=== PATIENT | male | born 1960 | race American Indian/Alaskan Native ===

== ENCOUNTER 2018-05-08 08:11 | Emergency (ER) | payer MEDICAID ==
[2018-05-08 08:20] VITALS: BMI 28.6
[2018-05-08 08:44] VITALS: RESP 18
--- NOTE | 2018-05-08 10:16 | ED PDOC ---
Arrival/HPI - General Chief Complaint: Lower Extremity Problem/Injury Time Seen by Provider: 05/08/18 08:21 Historian: Patient - History of Present Illness Narrative History of Present Illness (Text): 05/08/18 10:12 A 57 year old female, whose past medical history includes hypertension, arthritis, and heroin drug use, presents to the emergency department with a complaint of left foot pain and swelling. Patient notes that he has been experiencing these symptoms for the past 3 weeks. He reports twisting his ankle on a curb a few weeks ago. He states he was seen at [facility] for similar symptoms for which a foot xray was done. The patient also reports lightheadedness today. He denies fevers, chills, headache, chest pain, shortness of breath, dyspnea on exertion, cough, abdominal pain, nausea, vomiting, diarrhea, back pain, neck pain, urinary/bowel changes, or any other complaint. Time/Duration: Other (3 weeks) Symptom Onset: Sudden Symptom Course: Unchanged Activities at Onset: Rest, Light Context: Home Past Medical History - Provider Review Nursing Documentation Reviewed: Yes - Infectious Disease Hx of Infectious Diseases: None - Tetanus Immunization Tetanus Immunization: Up to Date - Cardiac Hx Hypertension: Yes - Psychiatric Hx Anxiety: Yes Hx Substance Use: Yes (last time 11/17/15) - Past Surgical History Past Surgical History: No Previous - Anesthesia Hx Anesthesia: No - Suicidal Assessment Feels Threatened In Home Enviroment: No Family/Social History - Physician Review Nursing Documentation Reviewed: Yes Family/Social History: No Known Family HX Smoking Status: Never Smoked Hx Alcohol Use: No Hx Substance Use: Yes (last time 11/17/15) Substance used: herion Hx Substance Use Treatment: No Allergies/Home Meds Allergies/Adverse Reactions: Allergies No Known Allergies Allergy (Unverified 11/17/15 12:54) Home Medications: Home Meds Medication Instructions Recorded Confirmed No Known Home Med 05/08/18 05/08/18 Review of Systems - Physician Review All systems were reviewed & negative as marked: Yes - Review of Systems Constitutional: absent: Fevers Respiratory: absent: SOB, Cough Cardiovascular: absent: Chest Pain, GANNON Gastrointestinal: absent: Abdominal Pain, Stool Changes, Diarrhea, Nausea, Vomiting Genitourinary Male: absent: Urinary Output Changes Musculoskeletal: Other (left foot pain.). absent: Back Pain, Neck Pain Neurological: Dizziness (Lightheadedness.). absent: Headache Physical Exam - Physical Exam Narrative Physical Exam (Text): 05/08/18 10:17 Gen: VS reviewed, alert, well developed, well nourished, nontoxic, mild distress. Somnolent. ENT: normal pharynx. Eye: EOMI, PERRL. Neck: no JVD, supple, no adenopathy. CV: regular rate, regular rhythm, no rubs, no murmur, no gallops, S1, S2, pulses equal and strong. Pulm: no distress, clear to auscultation, no wheeze, no rhonchi, breath sounds equal, no rales. Abd: soft, nontender, no guarding, no rebound, no rigidity, normal bowel sounds. Ext: Trace bilateral lower extermity edema. Left foot: No tenderness to palpation of left foot. No tenderness to lateral/ medial aspect of the left foot. Skin: good color, no rash, no cyanosis. Psych: responds appropriately to questions, normal affect. Neuro: oriented x 3, CN2-12 intact grossly, motor intact, sensation intact. Vital Signs Reviewed: Yes Vital Signs Temp Pulse Resp BP Pulse Ox 05/08/18 08:11 98.1 F 60 18 117/77 96 Temperature: Afebrile Blood Pressure: Normal Pulse: Regular Respiratory Rate: Normal Appearance: Positive for: Well-Appearing, Non-Toxic, Comfortable Pain Distress: None Mental Status: Positive for: Alert and Oriented X 3 Medical Decision Making ED Course and Treatment: 05/08/18 10:18 Impression: A 57 year old male presents to the emergency department with a complaint of left foot pain. Plan: -- Left Foot X- ray -- Chest X-ray -- Labs -- Reassess and disposition Prior Visits: Notes and results from previous visits were reviewed. Progress Notes: 05/08/18 10:11: Discussed case with ER physician at [facility] emergency department. 05/08/18 12:26 patient is now awake and alert and no longer appears somnolent. patient informed of diagnostic tests and instructed to follow up with a salesforce specialist. - Lab Interpretations I have reviewed the lab results: Yes - RAD Interpretation Narrative RAD Interpretations (Text): Chest X-ray Date Signed: 05/08/18 1119 Signed By: Tory Bell MD IMPRESSION: No focal consolidation. Radiology Orders: 05/08/18 10:03 CHEST PORTABLE [RAD] Stat - Scribe Statement The provider has reviewed the documentation as recorded by the Scribe Mahnaz Sandoval Provider Scribe Attestation: All medical record entries made by the Scribe were at my direction and personally dictated by me. I have reviewed the chart and agree that the record accurately reflects my personal performance of the history, physical exam, medical decision making, and the department course for this patient. I have also personally directed, reviewed, and agree with the discharge instructions and disposition. Disposition/Present on Arrival - Present on Arrival Any Indicators Present on Arrival: No History of DVT/PE: No History of Uncontrolled Diabetes: No Urinary Catheter: No History of Decub. Ulcer: No History Surgical Site Infection Following: None - Disposition Have Diagnosis and Disposition been Completed?: Yes Diagnosis: Foot pain, Drug abuse Disposition: HOME/ ROUTINE Disposition Time: 12:27 Patient Plan: Discharge Condition: STABLE Discharge Instructions (ExitCare): Drug Abuse and Drug Addiction (DC), Foot Sprain (DC) Additional Instructions: follow up with the salesforce specialist. Referrals: Mervin Oakes DPM [Staff Provider] - Follow up with primary Forms: [employer] ([place])
[2018-05-08 10:24] VITALS: O2SAT 99
[2018-05-08 10:28] LABS: BASO # 0.02 K/mm3 (0.0-2.0); BASO % 0.8 % (0.0-3.0); EOS # 0.1 (0.0-0.7); EOS % 4.6 % (1.5-5.0); GRAN # 1.19 (1.4-6.5); GRAN % 49.4 % (50.0-68.0); HEMOGLOBIN 11.9 g/dL (14.0-18.0); LYMPH # 0.9 (1.2-3.4); LYMPH % 38.6 % (22.0-35.0); MEAN CELL VOLUME 85.4 fl (80.0-105.0); MEAN CORPUSCULAR HEMOGLOBIN 27.2 pg (25.0-35.0); MEAN CORPUSCULAR HGB CONC 31.9 g/dl (31.0-37.0); MEAN PLATELET VOLUME 9.4 fl (7.0-11.0); MONO # 0.2 (0.1-0.6); MONO % 6.6 % (1.0-6.0); RBC 4.37 10^6/uL (3.5-6.1); RED CELL DISTRIBUTION WIDTH 12.1 % (11.5-14.5); WHITE BLOOD COUNT 2.4 10^3/uL (4.5-11.0)
[2018-05-08 10:37] LABS: ALB/GLOB RATIO 1.3 (1.1-1.8); ALBUMIN 4.3 g/dL (3.0-4.8); ALT/SGPT 46 U/L (7-56); AST/SGOT 50 U/L (17-59); BLOOD UREA NITROGEN 23 mg/dL (7-21); CALCIUM 9.5 mg/dL (8.4-10.5); GFR NON-AFRICAN AMERICAN > 60
[2018-05-08 10:46] LABS: B-TYPE NATRIURETIC PEPTIDE 28.5 pg/mL (0-450)
[2018-05-08 11:19] LABS: BARBITURATES, UR NEGATIVE (NEGATIVE); BENZODIAZEPINES, UR POSITIVE (NEGATIVE); OPIATES, UR POSITIVE (NEGATIVE); PHENCYCLIDINE, UR NEGATIVE (NEGATIVE)
--- NOTE | 2018-05-08 11:23 | RAD ---
HISTORY: Near syncope COMPARISON: Chest x-ray performed 09/10/13 TECHNIQUE: Chest, one view. FINDINGS: LUNGS: No focal consolidation. Please note that chest x-ray has limited sensitivity for the detection of pulmonary masses. PLEURA: No significant pleural effusion identified. No definite pneumothorax . CARDIOVASCULAR: Heart size appears within normal limits. No significant atherosclerotic calcification present. OSSEOUS STRUCTURES: No acute osseous abnormality identified. VISUALIZED UPPER ABDOMEN: Unremarkable. OTHER FINDINGS: None. IMPRESSION: No focal consolidation.
[2018-05-08 12:37] VITALS: BP 132/78; PULSE 73; TEMP 98.3
--- NOTE | 2018-05-08 13:35 | RAD ---
PROCEDURE: Left Foot Radiographs. HISTORY: pain COMPARISON: Left foot x-rays performed 02/12/18. FINDINGS: BONES: No acute displaced fracture. JOINTS: No dislocation. SOFT TISSUES: Mild soft tissue swelling. No evidence of radiopaque foreign body. OTHER FINDINGS: None. IMPRESSION: Mild soft tissue swelling. No acute displaced fracture, dislocation, or significant joint effusion identified. If symptoms persist, or if there is continued clinical concern, x-ray follow-up in 7-10 days should be considered.
== END 2018-05-08 12:36 | disposition home or self-care (01) ==
LOC: ED 08:11
DX: M79.672 Pain in left foot (principal); F19.10 Other psychoactive substance abuse, uncomplicated; I10 Essential (primary) hypertension